=== PATIENT | female | born 1985 ===

== ENCOUNTER 2017-05-22 16:01 | Inpatient (IN) | payer MEDICAID, OTHER ==
--- NOTE | 2017-05-22 17:47 | C.PDOC ---
History Of Present Illness 31-year-old female, PMHx includes Anemia and Asthma, presents to the emergency department, pre-screened for detox from Heroin, Alcohol and Xanax. Patient notes that she last used just prior to arrival. States she has tried to detox multiple times in the past, and also has an after care program set up. Denies any physical complaints at this time. Time Seen by Provider: 05/22/17 16:55 Chief Complaint (Nursing): Substance Abuse History Per: Patient History/Exam Limitations: no limitations Past Medical History Reviewed: Historical Data, Nursing Documentation, Vital Signs Vital Signs: Last Vital Signs Temp 98.5 F 05/22/17 21:25 Pulse 82 05/22/17 21:25 Resp 18 05/22/17 21:25 BP 94/60 L 05/22/17 21:25 Pulse Ox 97 05/22/17 21:25 - Medical History PMH: Anemia, Asthma, Pneumonia Family History: States: No Known Family Hx - Social History Hx Alcohol Use: Yes Hx Substance Use: Yes - Immunization History Hx Tetanus Toxoid Vaccination: No Hx Influenza Vaccination: No Hx Pneumococcal Vaccination: No Review Of Systems Constitutional: Negative for: Fever Cardiovascular: Negative for: Chest Pain Respiratory: Negative for: Shortness of Breath Gastrointestinal: Negative for: Vomiting, Abdominal Pain Musculoskeletal: Negative for: Back Pain Neurological: Negative for: Weakness, Numbness, Headache, Dizziness Physical Exam - Physical Exam Appears: Non-toxic, No Acute Distress, Other (drowsy. ) Skin: Warm, Dry, No Rash Head: Atraumatic, Normacephalic Eye(s): bilateral: Normal Inspection Nose: Normal Oral Mucosa: Moist Lips: Normal Appearing Neck: Normal ROM Cardiovascular: Rhythm Regular, No Murmur Respiratory: Normal Breath Sounds, No Accessory Muscle Use Extremity: Normal ROM Neurological/Psych: Oriented x3, Normal Speech ED Course And Treatment - Laboratory Results Result Diagrams: 05/22/17 17:57 05/22/17 17:57 O2 Sat by Pulse Oximetry: 96 Disposition - Disposition Disposition: HOSPITALIZED Disposition Time: 21:05 Condition: STABLE - POA Present On Arrival: None - Clinical Impression Clinical Impression: Polysubstance abuse - Scribe Statement The provider has reviewed the documentation as recorded by the Hernandez Acosta All medical record entries made by the Scribe were at my direction and personally dictated by me. I have reviewed the chart and agree that the record accurately reflects my personal performance of the history, physical exam, medical decision making, and the department course for this patient. I have also personally directed, reviewed, and agree with the discharge instructions and disposition.
[2017-05-22 18:10] LABS: BASO % 0.7 % (0.0-2.0); EOS # 0.4 K/uL (0.0-0.7); EOS % 6.5 % (0.0-4.0); HEMATOCRIT 41.4 % (34.0-47.0); LYMPH # 2.6 K/uL (1.0-4.3); LYMPH % 42.1 % (20.0-40.0); MEAN CELL VOLUME 81.3 fL (81.0-99.0); MEAN CORPUSCULAR HEMOGLOBIN 26.8 pg (27.0-31.0); MEAN PLATELET VOLUME 8.7 fL (7.2-11.7); MONO # 0.5 K/uL (0.0-0.8); MONO % 8.3 % (0.0-10.0); NRBC % 0.1 % (0.0-2.0); RED CELL DISTRIBUTION WIDTH 15.1 % (11.5-14.5); WHITE BLOOD COUNT 6.3 K/uL (4.8-10.8)
[2017-05-22 18:13] LABS: CHLORIDE 95 mmol/L (98-107)
[2017-05-22 18:14] LABS: SODIUM 138 mmol/L (132-148)
[2017-05-22 18:17] LABS: ALB/GLOB RATIO 1.2 (1.0-2.1); ALKALINE PHOSPHATASE 112 U/L (38-126); ALT/SGPT 55 U/L (9-52); AST/SGOT 43 U/L (14-36); BILIRUBIN,TOTAL 0.6 mg/dL (0.2-1.3); BLOOD UREA NITROGEN 11 mg/dL (7-17); CALCIUM 8.8 mg/dl (8.6-10.4); CARBON DIOXIDE 30 mmol/L (22-30); GFR AFRICAN-AMERICAN > 60; GLUCOSE,RANDOM 87 mg/dL (65-105); TOTAL PROTEIN 7.7 g/dL (6.3-8.3)
[2017-05-22 18:18] LABS: ALCOHOL SERUM < 10 mg/dl (0-10)
[2017-05-22 19:55] LABS: RBC URINE 1 /hpf (0-3); URINE BACTERIA RARE (<OCC); URINE BILIRUBIN NEGATIVE (NEGATIVE); URINE BLOOD NEGATIVE (NEGATIVE); URINE COLOR Yellow (YELLOW); URINE GLUCOSE (UA) NORMAL (Normal); URINE KETONE NEGATIVE (NEGATIVE); URINE LEUKOCYTE ESTERASE 1+ Leu/uL (Negative); URINE PROTEIN NEGATIVE (NEGATIVE); URINE UROBILINOGEN NORMAL mg/dL (0.2-1.0); WBC URINE 33 /hpf (0-5)
[2017-05-22 21:05] VITALS: RESP 18
--- NOTE | 2017-05-22 21:06 | PCM.BM ---
<Ml Anderson - Last Filed: 05/22/17 21:03> Treatment Plan Problems - Problems identified on initial assessmt Polysubstance Withdrawal Date Initiated: 05/22/17 Time Initiated: 21:04 Assessment reference: NA Status: Active Priority: 1 Comment: UDS is (+) opiates, cocaine , benzo Anxiety Date Initiated: 05/22/17 Time Initiated: 21:05 Assessment reference: NA Status: Active Priority: 2 Treatment assets and liabiliti Patient Assests: cooperative, ADL independent, good support system, cognitively intact Patient Liabilities: substance abuse - Milieu Protocol Maintain good personal hygiene: daily Encourage regular showers, daily Remind patient to perform daily oral care Conduct patient checks and document Observation sheet: Q15 minutes Maintain personal safety: every shift Educate patient to report safety concerns to staff, every shift Monitor environment for contraband/sharps Medication safety: Monitor for expected outcome, potential side effects: every shift, Assess barriers to learning: every shift, Assess readiness for medication education: every shift <Paco Mahoney - Last Filed: 05/23/17 13:49> - Diagnosis (1) Opioid use disorder, severe, dependence Status: Acute Interventions: 05/23/17 13:47 * Assess 7x/week regarding severity of withdrawal * Educate regarding risks, benefits, side effects and alternatives of medications * Use Motivational Interviewing for abstinence * Use CBT for relapse prevention * Medication management for withdrawal symptoms * Encourage medication assisted treatment * (2) Alcohol use disorder, severe, dependence Status: Acute Interventions: 05/23/17 13:48 * Assess 7x/week regarding severity of withdrawal * Educate regarding risks, benefits, side effects and alternatives of medications * Use Motivational Interviewing for abstinence * Use CBT for relapse prevention * Medication management for withdrawal symptoms * Encourage medication assisted treatment * (3) Sedative, hypnotic or anxiolytic use disorder, severe, dependence Status: Acute Interventions: 05/23/17 13:48 * Assess 7x/week regarding severity of withdrawal * Educate regarding risks, benefits, side effects and alternatives of medications * Use Motivational Interviewing for abstinence * Use CBT for relapse prevention * Medication management for withdrawal symptoms * Encourage medication assisted treatment *
[2017-05-22] MEDS ORDERED: Albuterol HFA 90 mcg/actuation (8 g) INH PRN (22:26)
[2017-05-22] MEDS ORDERED: Aluminum Hydroxide/Magnesium Hydroxide Susp (30 mL) PO PRN (22:32)
--- NOTE | 2017-05-23 13:47 | PCM.PSYCH ---
Initial Psychiatric Evaluation - Initial Psychiatric Evaluation Type of Admission: Voluntary Legal Status: Capacity Chief Complaint (in patient's own words): "I'm so tired" History of Present Illness and Precipitating Events: The pt is seen, cgart reviewed and case discussed. She is very sedated and thus a poor historian. She is single, lives with her BF, is unemployed. Her arranged this admission and the pt seems unmotivated and forced. She uses 10 bags of heroin and 5-10 xanax 2 mg per day. She also uses "more than a gallon" of alcohol, some cocaine and 1 ppd cigarettes. Denies psych sxs Past psych: Some depression, anxiety, denies trauma Family psych hx: Occasional drug use Medical hx: Hep C and asthma Current Medications: Active Medications Generic Name Dose Route Start Last Admin Trade Name Freq PRN Reason Stop Dose Admin Al Hydrox/Mg Hydrox/Simethicone 30 ml 05/22/17 22:32 Maalox 30 Ml PO TID PRN Indigestion / Heartburn Albuterol 1 puff 05/22/17 22:26 05/23/17 12:17 Ventolin Hfa 90 Mcg/Actuation (8 G) INH 1 puff RQ4 PRN Administration SOB Clonidine HCl 0.1 mg 05/22/17 22:32 Catapres PO Q8 PRN COWS Score More or Equal to 5 Hydroxyzine HCl 25 mg 05/22/17 22:13 Atarax PO Q4H PRN Anxiety Ibuprofen 600 mg 05/22/17 22:13 Motrin Tab PO Q6H PRN Pain, moderate (4-7) Loperamide HCl 2 mg 05/22/17 22:32 Imodium PO Q8 PRN Diarrhea Nitrofurantoin Macrocrystals 100 mg 05/23/17 10:00 05/23/17 11:43 Macrobid PO 100 mg Q12H DAYSI Administration Ondansetron HCl 4 mg 05/22/17 22:32 Zofran Tab PO Q8 PRN Nausea/Vomiting Trazodone HCl 50 mg 05/22/17 22:33 Desyrel PO HS PRN Insomnia Past Psychiatric History - Past Psychiatric History Previous Treatment History: None Pertinent Medical Hx (Current Medical&Sleep Prob, Allergies): Allergies Allergy/AdvReac Type Severity Reaction Status Date / Time No Known Allergies Allergy Unverified 05/22/17 16:10 Albuterol HFA [Ventolin HFA 90 mcg/actuation (8 g)] 2 puff Q4 PRN 05/22/17 Review of Systems - Psychiatric Psychiatric: Abnormal Sleep Pattern, Anxiety, Change in Appetite, Depression ( mild), Difficulty Concentrating. absent: Hallucinations, Homicidal Ideation, Suicidal Ideation Mental Status Examination - Personal Presentation Personal Presentation: Looks stated age - Affect Affect: Constricted - Motor Activity Motor Activity: Calm - Reliability in Providing Information Reliability in Providing Information: Fair - Speech Speech: Organized - Mood Mood: Anxious - Formal Thought Process Formal Thought Process: No Impairment - Cognitive Functions Orientation: Person, Place, Situation, Time Sensorium: Drowsy Attention/Concentration: Easily distracted Abstract Thinking: [place] Estimate of Intelligence: Average Judgement: Intact, as evidence by: Insight regarding need for hospitalization Memory: Recent intact, as evidence by: Ability to recall events of the day, Remote intact, as evidenced by: Abilit to recall sig. life events - Risk Risk: Withdrawal, Diminished functioning - Strength & Assets Inventory Strength & Assets Inventory: Family support (boyfriend), Cooperative - Limitations Limitations: Other DSM 5 DX - DSM 5 DSM 5 Diagnosis: Opioid use d/o, severe Sedative, hypnotic and anxiolytc use d/o - severe Alcohol use d/o - severe Cocaine use d/o - severe r/o Personality d/o Tobacco use d/o - severe - Recommended/Plan of Treatment Treatment Recommendations and Plan of Treatment: Methadone detox Librium detox Nicotine patch Gabapentin to augment Attend groups and activities ID and CBT for abstinence Support and psychoed Hep C counseling 33 min Projected ELOS: 4-5 days Prognosis: fair - Smoking Cessation Smoking Cessation Initiated: Yes
[2017-05-23] MEDS ORDERED: Multiple Vitamins Tab PO SCH (14:00)
[2017-05-23 14:29] VITALS: BP 91/58; PULSE 92; TEMP 98; O2SAT 96
--- NOTE | 2017-05-23 14:57 | PCM.PYCHDC ---
Mental Status Examination - Mental Status Examination Orientation: Person, Place, Time Memory: Impaired Mood: Anxious Affect: Constricted Speech: Slurred Attention: Poor Concentration: Poor Association: Loose Fund of Knowledge: Poor Formal Thought Process: No Impairment Suicidal Ideation: No Current Homicidal Ideation?: No Discharge Summary - Discharge Note Reason for Hospitalization: Heroin, alcohol and xanax detox Laboratory Data: Abnormal Lab Results 05/22/17 20:47 Urine HCG, Qual Negative Consultations:: List each consultation separately and include: 1. Reason for request. 2. Findings. 3. Follow-up Summary of Hospital Course include:: 1. Description of specific treatment plan utilized for patients during their course of treatmen. 2. Summarize the time- course for resolution of acute symptoms and/or regressed behaviors. 3. Describe issues identified and worked on during hospitalization. 4. Describe medication utilized. 5. Describe medical problems identified and treated. 6. Reassessment of suicide risk Summary of Hospital Course: She us admitted but not started detox b/c she was noyt withdrawing much. Then it was found that she snuck some heroin in, and then she wanted to sign out AMA. She was crashing all the time and was not in distress, nor withdrawal. Risks of her behavior and leaving AMA (incl. OD and , and seizures) discussed but she insisted and left. Sh eis likely to continue used (tiffanie, warned against). - Final Diagnosis (DSM 5) Condition upon Discharge: FAIR DSM 5: Opioid use d/o, severe Sedative, hypnotic and anxiolytc use d/o - severe Alcohol use d/o - severe Cocaine use d/o - severe r/o Personality d/o Tobacco use d/o - severe Disposition: AGAINST MEDICAL ADVICE Follow-up Treatment Plan: Return to ER if needed Consider methadone or suboxone Also consider Vivitrol as she has both opioid and alcohol dependence
== END 2017-05-23 15:00 | disposition left against medical advice (07) | DRG 894 ==
LOC: C.ER 16:01 → C.7D 20:42
PROVIDERS: ADMIT Psychiatry & Neurology Psychiatry; ATTEND Psychiatry & Neurology Psychiatry
DX: F10.20 Alcohol dependence, uncomplicated (principal); F11.20 Opioid dependence, uncomplicated; R56.9 Unspecified convulsions; F14.90 Cocaine use, unspecified, uncomplicated; F17.210 Nicotine dependence, cigarettes, uncomplicated; J45.909 Unspecified asthma, uncomplicated; F19.10 Other psychoactive substance abuse, uncomplicated